=== PATIENT | female | born 1990 | race Caucasian/White ===

== ENCOUNTER 2025-04-11 18:33 | Inpatient (IN) | payer OTHER, SELFPAY ==
[2025-04-11] VITALS (8 sets, daily range): BP systolic 106–139; BP diastolic 63–89; BMI 24.8; BMI 23.2
--- NOTE | 2025-04-11 16:24 | ED.GENMED ---
History of Present Illness
<Mateusz Anaya PA-C - Last Filed: 04/11/25 18:47>
General
Chief Complaint: Musculo-Skeletal Complaint
Source: patient
Time Seen by Provider: 04/11/25 16:05
History of Present Illness
History of Present Illness:
34-year-old female with no significant past medical history presenting to the emergency department from [facility] urgent care in [place] for evaluation after she reportedly was found to have at least 3 right-sided rib fractures and a small
pneumothorax. Patient was walking her 90 pound dog last night when she got pulled down falling onto the ground and since that time has had increasing pain with deep inspiration and some mild shortness of breath. She did take some Advil last night
with minimal relief. Presently states she feels that she just cannot take a deep inspiration and that the deep inspiration does cause pain. She denies any use of anticoagulants.
Past History
<Mateusz Anaya PA-C - Last Filed: 04/11/25 18:47>
Past History
ED Past Medical History: None
ED Past Surgical History: Other
Social History
Tobacco: Non-smoker
Alcohol: Occasional
Drug: None
Living: with family
Employment: Employed
Review of Systems
<Mateusz Anaya PA-C - Last Filed: 04/11/25 18:47>
Review of Systems
All Other Systems: ROS reviewed and negative except as documented in HPI and ROS
Phy Exam
<Mateusz Anaya PA-C - Last Filed: 04/11/25 18:47>
Physical Exam
Physical Exam:
GENERAL: Alert , in no apparent distress at rest but does appear uncomfortable with deep inspiration
EYE: conjunctiva clear
NECK: Supple
ENT: o/p clr, mmm.
CARDIAC: Regular rate and rhythm
LUNGS: Absent lung sounds right mid lung and apices, no flail chest, no outward signs of trauma
NEUROLOGICAL: Alert and oriented
SKIN: Warm and dry, skin intact.
MUSCULOSKELETAL: well perfused.
PSYCH: Normal and appropriate interaction.
Scores
<Mateusz Anaya PA-C - Last Filed: 04/11/25 18:47>
Heart Failure Risk
Heart Failure Risk Score: Not Applicable
Heart Score for Chest Pain Patients
STEMI patient?: Not applicable
Withdrawal Assessment of Alcohol
Withdrawal Assessment Completed?: Not applicable
Course
<Mateusz Anaya PA-C - Last Filed: 04/11/25 18:47>
Orders/Labs/Results
Orders:
Orders
04/11/25 Dinner
Regular
At Your Request: Full Participation
Does patient need a safe tray?: No
04/11/25 16:17
Morphine Sulfate 4 mg IV NOW STA
04/11/25 16:20
CT Chest W/o Iv Contrast Urgent
Comment:
Reason For Exam: right PTX
04/11/25 16:28
Basic Metabolic Panel Urgent
Complete Blood Count/With Diff Urgent
PTT Urgent
Prothrombin Time Urgent
04/11/25 18:11
Admit/Transfer Patient As Directed
Co-Sign Provider:
Level of Care: Inpatient admission
Assign to:: IMU- Intermediate Care
Physician / Group: Kade Recio
Diagnosis: Fracture of rib of right side Pneumothorax
Reason for Hospitalization: Fracture of rib of right side Pneumothorax
Expected length of stay greater than two midnights?: Yes
ELOS- Estimated Length of Stay in days: 2
I certify the patient meets the requirements for IP care: Yes
PRN Pain Medication Management As Directed
May give lesser potent ordered pain med per pt: Yes
preference::
Protocol:: Medication orders for pain may be administered in a
manner that supports deferring to patient preference
when the pt is:
- Requesting an ordered lesser potent pain medication.
Least to most potent pain medications are defined
as: acetaminophen < NSAID < tramadol < opioids
(morphine, oxycodone, hydromorphone).
- Requesting a lesser dose of the same medication IF
ORDERED.
- Requesting a less intrusive route of administration
if both routes are prescribed by the provider (PO <
IV).
04/11/25 18:12
Code Status As Directed
Resuscitation Status: Full Code
04/11/25 19:00
CR Chest - 2 Views Urgent
Comment:
Reason For Exam: known PTX, repeat XR
04/11/25 20:54
Acetaminophen [Tylenol] 650 mg PO Q4HPRN PRN
Morphine Sulfate 2 mg IV Q4HPRN PRN
04/11/25 20:54
Cardiothoracic Surgery Consult Routine
Consulting Provider: Hugo Dougherty
Was physician already notified: Yes
PULMONARY CONSULT Routine
Consulting Provider: Iveth Pugh
Was physician already notified: Yes
Activity As Directed
Activity Level: As Tolerated
Vital Signs As Directed
Frequency: Per unit guidelines
Weight As Directed
Frequency: Once
Comment: on admission
DX Deep Vein Thrombosis Video Routine
04/12/25 06:00
Levothyroxine [Synthroid] 50 mcg PO DAILY@0600
Liothyronine [Cytomel] 12.5 microgram PO DAILY@0600
04/12/25 08:00
Citalopram [Celexa] 20 mg PO DAILY
Fluconazole [Diflucan] 200 mg PO DAILY
04/12/25 18:00
Enoxaparin Sodium [Lovenox] 40 mg SC QPM
Abnormal Lab Results
04/11/25
16:28
Absolute Neuts (auto) 7.8 H 10^3/uL
(1.4-6.5)
Absolute Monos (auto) 0.9 H 10^3/uL
(0.1-0.6)
Lymphocytes % 14.1 L %
(20.5-51.1)
Glucose 111 H mg/dl
(70-99)
04/11/25 16:28
04/11/25 16:28
Vital Signs
Initial and Last Documented VS:
Initial Vital Signs
Temp Pulse Resp BP Pulse Ox
98.0 F 86 20 122/75 99
04/11/25 15:48 04/11/25 15:48 04/11/25 15:48 04/11/25 15:48 04/11/25 15:48
Last Documented Vital Signs
Temp Pulse Resp BP Pulse Ox
98.6 F 80 18 106/87 96
04/11/25 21:07 04/11/25 20:45 04/11/25 20:45 04/11/25 20:27 04/11/25 22:26
<Cody Payne, DO - Last Filed: 04/11/25 22:50>
Orders/Labs/Results
Orders:
Orders
04/11/25 Dinner
Regular
At Your Request: Full Participation
Does patient need a safe tray?: No
04/11/25 16:17
Morphine Sulfate 4 mg IV NOW STA
04/11/25 16:20
CT Chest W/o Iv Contrast Urgent
Comment:
Reason For Exam: right PTX
04/11/25 16:28
Basic Metabolic Panel Urgent
Complete Blood Count/With Diff Urgent
PTT Urgent
Prothrombin Time Urgent
04/11/25 18:11
Admit/Transfer Patient As Directed
Co-Sign Provider:
Level of Care: Inpatient admission
Assign to:: IMU- Intermediate Care
Physician / Group: Kade Recio
Diagnosis: Fracture of rib of right side Pneumothorax
Reason for Hospitalization: Fracture of rib of right side Pneumothorax
Expected length of stay greater than two midnights?: Yes
ELOS- Estimated Length of Stay in days: 2
I certify the patient meets the requirements for IP care: Yes
PRN Pain Medication Management As Directed
May give lesser potent ordered pain med per pt: Yes
preference::
Protocol:: Medication orders for pain may be administered in a
manner that supports deferring to patient preference
when the pt is:
- Requesting an ordered lesser potent pain medication.
Least to most potent pain medications are defined
as: acetaminophen < NSAID < tramadol < opioids
(morphine, oxycodone, hydromorphone).
- Requesting a lesser dose of the same medication IF
ORDERED.
- Requesting a less intrusive route of administration
if both routes are prescribed by the provider (PO <
IV).
04/11/25 18:12
Code Status As Directed
Resuscitation Status: Full Code
04/11/25 19:00
CR Chest - 2 Views Urgent
Comment:
Reason For Exam: known PTX, repeat XR
04/11/25 20:54
Acetaminophen [Tylenol] 650 mg PO Q4HPRN PRN
Morphine Sulfate 2 mg IV Q4HPRN PRN
04/11/25 20:54
Cardiothoracic Surgery Consult Routine
Consulting Provider: Hugo Dougherty
Was physician already notified: Yes
PULMONARY CONSULT Routine
Consulting Provider: Iveth Pugh
Was physician already notified: Yes
Activity As Directed
Activity Level: As Tolerated
Vital Signs As Directed
Frequency: Per unit guidelines
Weight As Directed
Frequency: Once
Comment: on admission
DX Deep Vein Thrombosis Video Routine
04/12/25 06:00
Levothyroxine [Synthroid] 50 mcg PO DAILY@0600
Liothyronine [Cytomel] 12.5 microgram PO DAILY@0600
04/12/25 08:00
Citalopram [Celexa] 20 mg PO DAILY
Fluconazole [Diflucan] 200 mg PO DAILY
04/12/25 18:00
Enoxaparin Sodium [Lovenox] 40 mg SC QPM
Abnormal Lab Results
04/11/25
16:28
Absolute Neuts (auto) 7.8 H 10^3/uL
(1.4-6.5)
Absolute Monos (auto) 0.9 H 10^3/uL
(0.1-0.6)
Lymphocytes % 14.1 L %
(20.5-51.1)
Glucose 111 H mg/dl
(70-99)
04/11/25 16:28
04/11/25 16:28
Vital Signs
Initial and Last Documented VS:
Initial Vital Signs
Temp Pulse Resp BP Pulse Ox
98.0 F 86 20 122/75 99
04/11/25 15:48 04/11/25 15:48 04/11/25 15:48 04/11/25 15:48 04/11/25 15:48
Last Documented Vital Signs
Temp Pulse Resp BP Pulse Ox
98.6 F 80 18 106/87 96
04/11/25 21:07 04/11/25 20:45 04/11/25 20:45 04/11/25 20:27 04/11/25 22:26
<Mateusz Anaya PA-C - Last Filed: 04/11/25 18:47>
MDM/Problems Addressed
Differential Diagnosis Includes:
Known multiple rib fractures
No pneumothorax
hemothorax
Visceral injury
MDM/Problems Addressed:
34-year-old female presenting to the ER from urgent care for evaluation of known rib fractures and pneumothorax. Patient has x-rays on her phone, she does appear to have at least small to moderate right-sided pneumothorax. Will obtain CT scan here
to further evaluate. Patient will require chest tube placement. Dr. Payne made aware and will evaluate the patient. Disposition pending
<Mateusz Anaya PA-C - Last Filed: 04/11/25 18:47>
*Radiology
Radiology exam reviewed: radiology read reviewed
*Pulse Oximetry
SaO2: 99
Oxygen Mode of Delivery: Room air
Patient hypoxic: no
*New Car Get Ready Mechanic Interpretation
Rate: normal
Rhythm: sinus
*Critical Care Note
Total Time (30-74mins, 75-104mins- exclusive of procedures): Not Applicable
Data Reviewed
Review of Other/Old Records Reveals: Radiology Studies
Source: patient and records
<Cody Payne DO - Last Filed: 04/11/25 22:50>
*New Car Get Ready Mechanic Interpretation
Interpretation: normal
*Critical Care Note
Total Time (30-74mins, 75-104mins- exclusive of procedures): 35 minutes
<Mateusz Anaya PA-C - Last Filed: 04/11/25 18:47>
Patient Management
Discussion with other providers: Hospitalist and Physician Scientist
Escalation/DeEscalation of care consider admission/obs:
Dr. Payne discussed case with cardiothoracic surgery who reviewed patient's scans and okay with holding on placing chest tube at this time and can instead monitor with serial chest x-rays, recommends obtaining another chest x-ray in 2 hours. If
patient becomes symptomatic would then need to place chest tube. Okay with patient staying at this facility and they will see the patient in consult. Will also notify pulmonary team, hospitalist team to accept. Patient continues to remain
clinically stable, oxygen saturation 98% on room air.
<Cody Payne DO - Last Filed: 04/11/25 22:50>
Patient Management
Discussion with other providers: Physician Scientist (Case discussed with pulmonology and CT surgery)
ED Attending Note
<Mateusz Anaya PA-C - Last Filed: 04/11/25 18:47>
-
Portions of this chart may have been created with voice recognition software.� Occasional wrong word or��sound alike� substitutions may have occurred due to the inherent limitations of voice recognition software.
<Cody Payne DO - Last Filed: 04/11/25 22:50>
ED Attending Note
Patient seen and examined by attending physician: Yes
I performed the substantive portion of visit, reviewed & personally made and approve the management plan that is documented in note by myself or OPAL.: Yes
ED Attending Note:
34-year-old female presents after she fell yesterday. Found to have a pneumothorax as an outpatient x-ray from urgent care. CT shows 10 to 15%. No clinical concern for tension. Patient is very well-appearing. Not tachypneic, not tachycardic.
Exam: Awake and alert, pulse ox normal, does have good breath sounds. Assessment and plan: Case discussed with CT surgery reviewed CT scan and recommends against chest tube at this time. The patient is really hesitant to proceed with chest tube
and only if it is necessary which is understandable. At this time with shared decision making with the patient and consultation with both pulmonology and CT surgery, we will hold off on chest tube insertion for now and get a repeat x-ray in the
morning. If pneumothorax is persistent or worsening, she may need to have tube thoracostomy and the patient is aware. At the time of transfer to her bed upstairs she was very stable and in fact was hungry. No further symptoms. Continue to
monitor close
Discharge Plan
Departure
Patient Disposition: Admit
Date of Disposition: 04/11/25
Time of Disposition: 17:39
Presentation/result/management discussed w/ accepting MD/DO: Hospitalist
Discharge Problem:
Pneumothorax, Fracture of rib of right side
Interventions
Interventions:
*Risk Screen - Suicide Last Done: 04/11/25 16:32
*General Assessment Last Done: 04/11/25 15:48
*Neglect/Abuse Screening Last Done: 04/11/25 16:32
*ED COVID-19 Vaccine History Last Done: 04/11/25 16:32
*Nursing Disposition Last Done: 04/11/25 20:57
ED-Musculoskeletal Assessment Last Done: 04/11/25 16:30
Discharge Date and Time
Discharge Date/Time: 04/11/25 20:57
[2025-04-11] MEDS: MORPHINE SULFATE 4 MG IV (16:30)
[2025-04-11 16:38] LABS: Hematocrit 43.5 % (37.0-47.0); Hemoglobin 14.6 g/dL (12.0-16.0); Mean Corp Hgb Conc. 33.6 g/dL (33.0-37.0); Mean Corpuscular Volume 89.7 fL (81.0-99.0); Nucleated Red Blood Cells % 0 %; Platelet Count 225 10^3/uL (130-400); Red Cell Dist. Width 12.7 % (11.5-14.5)
[2025-04-11 16:47] LABS: INR 1.06; PT 14.1 Sec (11.4-14.6)
[2025-04-11 16:48] LABS: APTT 26.2 Sec (23.4-35.0)
[2025-04-11 16:52] LABS: Blood Urea Nitrogen 12 mg/dl (7-17); Calcium 9.2 mg/dl (8.4-10.2); Carbon Dioxide 25 mmol/L (22-30); Chloride 103 mmol/L (98-107); Estimated Creatinine Clearance 79 ml/min; Glucose 111 mg/dl (70-99); Potassium 3.8 mmol/L (3.5-5.1); Sodium 137 mmol/L (135-145); eGFR > 60.00
--- NOTE | 2025-04-11 17:43 | HPS.HSE ---
Family Physician
-
Family Physician: Paxton Bose
Chief Complaint
-
pain with inspiration and dyspnea
History of Present Illness
Patient is a 39-year-old female with past medical history significant for anxiety/depression and ADD who presented to [facility] ED for evaluation as recommended by [facility] Urgent care in [place]. Patient went to [facility] for evaluation of increasing pain with
deep inspiration and some mild dyspnea. Patient reports that yesterday evening she was walking her 90lb dog when she was pulled and down and fell onto the ground landing on small tree stump. Since fall she reports increasing pain with deep
inspiration and difficulty sleeping yesterday evening.
Medical History
Past Medical History
Past Medical History: Reports Other
Additional Past Medical History:
anxiety/depression
hypothyroid
ADD
acne
Past Surgical History: Reports Other
Additional Past Surgical History:
wisdom teeth extraction
breast augmentation
Social History
Tobacco: Non-smoker
Alcohol: None
Drug: Marijuana (occasional )
Living: With Family
Employment: Employed
Family History
Family History: Not pertinent
Allergies / Home Medications
Allergies reflects when Allergies were last updated in [employer].
Home Medications with original date entered in [employer]
Allergy/Medication List:
Allergies
Allergy/AdvReac Type Severity Reaction Status Date / Time
No Known Allergies Allergy Unverified 04/11/25 15:48
Home Medications
calcium carbonate (Tums) 200 mg PO BIDPRN PRN gerd 04/11/25
citalopram 20 mg tablet 20 mg PO DAILY 04/11/25
dextroamphetamine-amphetamine ER 15 mg 24hr capsule,extend release (Adderall XR) 15 mg PO DAILY 04/11/25
fluconazole 200 mg tablet 200 mg PO DAILY 04/11/25
subha root extract 50 mg tablet 50 mg PO DAILY 04/11/25
ibuprofen 200 mg tablet (Advil) 400 mg PO Q6HPRN PRN mild pain 04/11/25
levothyroxine 50 mcg tablet 50 mcg PO DAILY 04/11/25
liothyronine 25 mcg tablet 12.5 mcg PO DAILY 04/11/25
omega 4-big-yzd-fish oil 1,000 mg (120 mg-180 mg) capsule (Fish Oil) 1 cap PO DAILY 04/11/25
spironolactone 50 mg tablet 50 mg PO DAILY 04/11/25
Review of Systems
-
History Source: Patient
Constitutional: Reports No Symptoms
EENT: Reports No Symptoms
Respiratory: Reports Other (pain with deep inspiration )
Cardiac: Reports No Symptoms
Abdomen/GI: Reports No Symptoms
: Reports No Symptoms
Musculoskeletal: Reports No Symptoms
Skin: Reports No Symptoms
Neurological: Reports No Symptoms
Endocrine: Reports No Symptoms
Hematologic/Lymphatic: Reports No Symptoms
Psych: Reports No Symptoms
Physical Exam
Vital Signs
Vital Signs
Temp Pulse Resp BP Pulse Ox
98.0 F 84 18 137/79 98
04/11/25 15:48 04/11/25 17:30 04/11/25 17:30 04/11/25 17:00 04/11/25 17:30
Physical Exam
General: Well Developed, Well Nourished and No Apparent Distress
HEENT: NormoCephalic, Moist mucous membranes, Atraumatic, [place] Conjunctivae, Nose Appears Normal and Ears Appear Normal
Respiratory: Clear, Non Labored Respirations and Other (appears to be in discomfort with deep breathing )
Cardiac: S1/S2 and Regular Rhythm; No Murmur, Rub or Gallop
Breast: Deferred by me
GI: Soft, Non Tender, Non Distended and Normal Bowel Sounds; No Organomegaly
Rectal: Deferred by Provider
Genito-urinary: Deferred by me
Musculoskeletal: No Clubbing, No Cyanosis and No Edema
Skin: Warm and IV/Catheter Site
Neuro: Awake, Alert, AO x 3 and Nonfocal/grossly intact
Psych: Calm and Intact Judgment/Insight
Laboratory Results
-
04/11/25 16:28
04/11/25 16:28
Laboratory Results
PT 14.1 Sec (11.4-14.6) 04/11/25 16:28
INR 1.06 04/11/25 16:28
APTT 26.2 Sec (23.4-35.0) 04/11/25 16:28
Data Reviewed
-
CT Scan: Report Reviewed by me (Chest: Fractures involving the right ninth through 11th ribs. Small right pneumothorax, estimated volume 10-15%. There is mild shift of the heart toward the left, suggesting that there could be a small component of
tension associated with the pneumothorax. As warranted, continued radiographic foll)
Lab Data: Labs Reviewed by me
Impression/Plan
-
IMPRESSION/PLAN:
#Fracture of rib of right side 9th - 11th ribs
#Pneumothorax
Chest CT: Fractures involving the right ninth through 11th ribs.
Small right pneumothorax, estimated volume 10-15%.
There is mild shift of the heart toward the left, suggesting that there could be a small component of tension associated with the pneumothorax. As warranted, continued radiographic follow-up
may be helpful.
- Admit to IMU
- Consult CT surgery
- Consult Pulmonary
#hypothyroid
- continue levothyroxine and liothyronine
#anxiety/depression
- continue citalopram
#ADD
- continue Adderall
#acne
- continue spironolactone
#bacterial vaginitis
patient reports recent diagnosis
- continue fluconazole
Code status: full code
DVT prophylaxis: Loveonox sq
--- NOTE | 2025-04-11 18:13 | W.PN.UPDATE ---
Update Note
Progress Note Update
This note serves as an addendum to the H&P by materials buyer OPAL Jane Eli
HPI
34F No signifcant PMHX sent to ER from [facility] urgent care in [place]
- for evaluation after she reportedly was found to have at least 3 right-sided rib fractures and a small pneumothorax. - s/p mechanical fall while walking the 90 lb dog Patient was walking her 90 pound dog last night
- since increasing pain with deep inspiration and some mild shortness of breath.
- She did take some Advil last night with minimal relief.
She denies any use of anticoagulants.
Relevant VS
Vital Signs
Temp Pulse Resp BP Pulse Ox
98.0 F 86 19 137/79 97
04/11/25 15:48 04/11/25 17:45 04/11/25 17:45 04/11/25 17:00 04/11/25 17:45
PE
Gen: NAD
Neck: supple
Lungs: absent lung sounds right mid lung and apices, no flail chest, no outward signs of trauma
Cor: RRR S1 S2
Abnormal Lab Results
04/11/25
16:28
Absolute Neuts (auto) 7.8 H
Absolute Monos (auto) 0.9 H
Lymphocytes % 14.1 L
Glucose [address] W/o Iv Contrast
- Fractures involving the right ninth through 11th ribs.
- Small right pneumothorax, estimated volume 10-15%.
- There is mild shift of the heart toward the left, suggesting that there could be a small component of tension associated with the pneumothorax.
- As warranted, continued radiographic follow-up may be helpful.
NO PRIOT hospitalist admission:
ASSESSMENT & PLAN
Pending Rx reconciliation
Traumatic Rt 10-15% PTX due to Rt 9-11 Rib Rx
- associated mild shift of the heart toward the left - could be a small component of tension ?
- ER dw CTS Dr Ascencio, -stable to keep her at
- Urgent consulted to CTS, Pul
- PRN pain Meds
Hypothyroid
-on Liothyronine
On Spironolactone for Acne Vulgaris
DVT Px: LMWH
Full code
IMU
--- NOTE | 2025-04-11 21:47 | PTCARENOTE ---
Received patient from ED, aao x3 able to make needs known. Verbalizes pain is minimal at rest, increases to 5-6/10 with movement and activity. Patient ambulatory from stretcher to standing scale, then bed, gait steady. Lung sounds decreased to right
lobes, clear to left lobes. Pox 96% on ra. Patient states she would like to eat prior to receiving pain medication, will plan to administer as needed post eating. Physical assessment as documented. ROCK SINGER to bedside to assess patient as well upon
arrival to unit. Call gandhi within reach, will continue to monitor patient closely.
[2025-04-11] MEDS: MORPHINE SULFATE 2 MG IV (21:58)
[2025-04-12] VITALS (11 sets, daily range): BP systolic 99–132; BP diastolic 58–85
--- NOTE | 2025-04-12 02:20 | W.PN.UPDATE ---
Update Note
Progress Note Update
~1 am Follow up CXR, reviewed and appears stable on preliminary read. Patient with no hypoxia, vital signs stable, pain controlled.
[2025-04-12] MEDS: CYTOMEL 12.5 MICROGRAM PO (05:57)
[2025-04-12] MEDS: SYNTHROID 50 MCG PO (05:57)
[2025-04-12] MEDS: MORPHINE SULFATE 2 MG IV (06:10)
[2025-04-12] MEDS: DIFLUCAN 200 MG PO (09:00)
[2025-04-12] MEDS: CELEXA 20 MG PO (09:00)
--- NOTE | 2025-04-12 09:40 | CON.PUL ---
Consultation
Consultation Request
Date/Time Consultation Requested: 04/11/2025 - 2053
Date/Time Consultation Performed: 04/12/2025843
Requesting Provider: KIRTI Howell
Performing Provider: Dr. Christianson
Reason for Consultation: Acute PTX
Medical History
-
Chief Complaint: Chest pain + SOB s/p fall
History of Present Illness:
34-year-old female with a past medical history of of ADD, anxiety/depression and hypothyroidism who presents with a fall with subsequent chest pain + SOB. Patient was walking her 90 pound dog (traci pérez) when the dog saw a deer and took off,
causing the patient to slip onto her side which hit a tree trunk. She went to an urgent care ([facility] urgent care in [place]) and diagnosed with 3 rib fractures with a partial pneumothorax. Patient came here to for further evaluation. CT chest
showed a comminuted fracture involving the posterior right 11th rib, with a nondisplaced fracture involving the posterolateral right ninth rib, with a slightly displaced right shoulder involving the posteromedial right 10th rib. There was also a
small right sided pneumothorax. Patient was given morphine in the ER and admitted to the hospitalist service. Pulmonary service now consulted for additional management/recommendations.
When I saw the patient, she was resting in bed in no acute distress. Her fianc�, Alon, is present at bedside and all questions were answered. Continues to have right-sided rib discomfort. BP 111/70, heart rate 86 and saturating 99%. I asked the
nurse to place her on to 4 L/min nasal cannula which she is currently on. Patient is a non-smoker and has no personal history of a pneumothorax.
PMHx: Anxiety/depression, ADD, hypothyroidism, acne
PSHx: [place] teeth extraction, breast augmentation
Past Medical History
Past Medical History: Other (Above as per HPI)
Past Surgical History: Other (Above as per HPI)
Social History
Tobacco: Non-smoker
Alcohol: None
Drug: Marijuana (Occasionally)
Personal: Other (Engaged)
Employment: Employed
Family History
Family History: Reviewed & Not Pertinent
Allergies / Home Medications
Allergies
Allergy/AdvReac Type Severity Reaction Status Date / Time
No Known Allergies Allergy Unverified 04/11/25 15:48
Home Medications
�Medication �Instructions �Recorded �Confirmed �Last Taken �Type
calcium carbonate (Tums) 200 mg PO BIDPRN PRN gerd 04/11/25 04/11/25 04/10/25 History
citalopram 20 mg tablet 20 mg PO DAILY Mental 04/11/25 04/11/25 04/11/25 History
Health/Anxiety
dextroamphetamine-amphetamine ER 15 mg PO DAILY ADD 04/11/25 Unknown History
15 mg 24hr capsule,extend release
(Adderall XR)
fluconazole 200 mg tablet 200 mg PO DAILY ANTIFUNGAL 04/11/25 04/11/25 04/11/25 History
subha root extract 50 mg tablet 50 mg PO DAILY Supplement 04/11/25 04/11/25 Unknown History
ibuprofen 200 mg tablet (Advil) 400 mg PO Q6HPRN PRN mild pain 04/11/25 04/11/25 04/10/25 History
levothyroxine 50 mcg tablet 50 mcg PO DAILY Thyroid 04/11/25 04/11/25 04/11/25 History
liothyronine 25 mcg tablet 12.5 mcg PO DAILY Thyroid 04/11/25 04/11/25 04/11/25 History
omega 7-zli-gyq-fish oil 1,000 mg 1 cap PO DAILY Supplement 04/11/25 04/11/25 Unknown History
(120 mg-180 mg) capsule (Fish Oil)
spironolactone 50 mg tablet 50 mg PO DAILY Fluid 04/11/25 04/11/25 04/11/25 History
Retention/Swelling
Review of Systems
-
History Source: Patient
All other systems: Negative unless noted
Vitals / Labs / Diagnostic Testing
Vital Signs
Temp Pulse Resp BP Pulse Ox
98.2 F 68 17 111/70 99
04/12/25 07:05 04/12/25 13:00 04/12/25 13:00 04/12/25 12:00 04/12/25 13:00
Lab Data
04/12/25 12:30
04/12/25 12:30
Laboratory Results
04/11/25
16:28
PT 14.1
INR 1.06
APTT 26.2
Diagnostic Testing:
Physical Exam
-
HEENT: Normocephalic and Anicteric
Cardiovascular: S1/S2 and Peripheral Edema (negative)
Respiratory: Wheeze (negative), Rales (Right base) and Rhonchi (negative)
GI: Soft, Non Distended, Non Tender and Normal Bowel Sounds
Neurology: AO x 3 and Tremors (negative)
Skin: Warm and Dry
General: Respiratory Distress (negative), Comfortable, Pain (Right sided ribs when she takes a deep breath, coughs or when her ribs are palpated), Fever (negative) and Chills (negative)
Assessment
-
Assessment: 34-year-old female with a past medical history of of ADD, anxiety/depression and hypothyroidism who presents with a fall with subsequent chest pain + SOB. Patient was walking her 90 pound dog (traci pérez) when the dog saw a deer and
took off, causing the patient to slip onto her side which hit a tree trunk. She went to an urgent care ([facility] urgent care in [place]) and diagnosed with 3 rib fractures with a partial pneumothorax. Patient came here to for further evaluation.
CT chest showed a comminuted fracture involving the posterior right 11th rib, with a nondisplaced fracture involving the posterolateral right ninth rib, with a slightly displaced right shoulder involving the posteromedial right 10th rib. There was
also a small right sided pneumothorax. Patient was given morphine in the ER and admitted to the hospitalist service in the IMU. Pulmonary service now consulted for additional management/recommendations.
Chronic conditions CUSTOMS OFFICER: Anxiety/depression, ADD, hypothyroidism, acne
Impression:
#Right-sided traumatic pneumothorax initially with mild tension
#Fall while walking dog s/p acute right-sided rib fractures (ribs 9 through 11 with a slightly displaced right shoulder involving the posteromedial right 10th rib)
#Right-sided rib pain due to fall
#Anxiety/depression
#Hypothyroidism
#ADD
Plan:
- Patient fell while walking her 90 lb dog after he chased after a deer; the pt slipped and fell, hitting the right side of her ribs onto a tree trunk and was found to have a right-sided pneumothorax which remains small
- Start supplemental O2 to maintain hyperoxia to help resorb the pneumothorax
- Pain control, give patient a small pillow to hold up against her ribs while coughing/sneezing/sitting up as this will help prevent splinting
- Avoid incentive spirometer as this could potentially worsen her pneumothorax
- Repeat CXR later this afternoon to assess if PTX is enlarging --> if pt develops worsening chest pain or SOB, then she will need stat CXR and will likely need a chest tube
- If PTX remains stable by tomorrow, then she can likely come off oxygen and be discharged with outpatient repeat CXR
- Her rib fractures are nondisplaced, and right 11th rib fracture is comminuted; right shoulder is slightly displaced involving the posteromedial right 10th rib
- Pain control is bailey here
- As stated above, give patient a small pillow to hold up against her ribs to avoid splinting while she coughs, sneezes or sits up
- Maintain SpO2 >95%, using supplemental o2 as above to keep her hyperoxic
- prn nebulized bronchodilators - not currently bronchospastic
- Replete electrolytes with K>4, Mg>2
- Trend H/H and transfuse if needed to keep Hb>7g/dL; keep plt>20k, unless there is concern for bleeding then keep plt>50k
- Maintain euglycemia with goal BG >100 and <180
- DVT ppx: LMWH
Pulmonary service will continue to follow along. Outpatient office follow-up will be arranged.
Data:
CT chest without contrast 04/11/2025:
Fractures involving the right ninth through 11th ribs.
Small right pneumothorax, estimated volume 10-15%.
There is mild shift of the heart toward the left, suggesting that there could be a small component of tension associated with the pneumothorax. As warranted, continued radiographic follow-up may be helpful.
CXR 04/12/2025: Essentially stable small right apical pneumothorax.
Total time spent today was 62 minutes for this encounter. Time includes reviewing laboratory test/imaging results, reviewing pertinent medical records, obtaining and reviewing medical history, performing an appropriate exam, ordering medications,
tests and procedures. Time also includes documentation of this encounter, coordinating patient care and communicating with other healthcare professionals. Total time does not include separately billed tests performed on this date of service.
[2025-04-12] MEDS: TORADOL 10 MG IV (10:53)
--- NOTE | 2025-04-12 11:15 | PTCARENOTE ---
Patient placed on 4L NC per order from Pulmonary, to help reabsorb the pneumothorax. Pt reports pain at 8/10 but asking for lesser pain medication because the Morphine just makes her sleep. Toradol given per DEC. Pt reports breathing is fine. Right
lung sounds diminished. Pt asking to shower, aware but would like to assess her first. Pt ate breakfast. Assessment, care and VS as charted.
[2025-04-12 12:44] LABS: Hematocrit 43.2 % (37.0-47.0); Hemoglobin 14.6 g/dL (12.0-16.0); Mean Corp Hgb Conc. 33.8 g/dL (33.0-37.0); Mean Corpuscular Volume 90.4 fL (81.0-99.0); Platelet Count 224 10^3/uL (130-400); Red Cell Dist. Width 12.7 % (11.5-14.5)
--- NOTE | 2025-04-12 12:53 | W.PN.HOSP.TC ---
Today's Communication/Plan
-
Repeat chest x-ray in the morning
Oxygen
Pain control
Lidocaine patch to chest wall for pain
B HCG
DC Diflucan and add Flagyl
Assessment / Plan
Assessment / Plan
34-year-old with dyspnea. Patient was walking with her 90 pound dog when she was pulled and she fell.
Patient stated that she fell onto a stump of the tree. Did not hit her head or any other parts of the body. This happened on Friday and she went to urgent care on Friday. Denies any pain anywhere else, no chest pain shortness of breath, any other
body aches or pains no abdominal pain no headache no loss of consciousness no nausea or vomiting.
On examination awake alert oriented pleasant
Cardiovascular system S1-S2 appreciated
Tenderness on the rib on the right side clear to auscultation
Abdomen soft and nontender
All joint exams without any pain and no movement restriction
No injuries noted
# Traumatic rib fractures 19 level on the right side with pneumothorax
Chest x-ray reviewed by me
Pulmonary consulted pain control
Oxygen
Toradol for pain.
Minimize IV narcotics
# Recent bacterial vaginal infection. Patient completed Diflucan 150 mg 1 dose. Patient is supposed to be on Flagyl 500 mg twice daily for total of 5 days. Not Diflucan daily. Discontinue Diflucan and start Flagyl
# Hypothyroidism-continue levothyroxine 50 mcg daily and also liothyronine 12.5 mcg daily
# Depression-continue Celexa
# ADHD-continue Adderall
# DVT prophylaxis-Lovenox
# Full code
Discussed with nursing at bedside
Add beta-HCG
Part of this note was created using voice recognition system. Occasional wrong word or��sound alike� substitutions may have inadvertently occurred due to the inherent limitations of voice recognition software. If noted kindly bring it to my
attention for correction.
Anticipated Discharge: 24 - 48 hours
Subjective/Interval History
-
Date of Service: April 12, 2025
Objective Data
-
Labs:
Laboratory Results
04/12/25
12:30
WBC 8.2
Hgb 14.6
Hct 43.2
Plt Count 224
Sodium Pending
Potassium Pending
Chloride Pending
Carbon Dioxide Pending
BUN Pending
Creatinine Pending
Glucose Pending
Calcium Pending
Vital Signs:
Vital Signs
Temp Pulse Resp BP Pulse Ox
98.2 F 66 15 100/66 99
04/12/25 07:05 04/12/25 11:00 04/12/25 11:00 04/12/25 08:00 04/12/25 11:15
I&O
04/11/25 04/12/25 04/13/25
06:59 06:59 06:59
Intake Total 480 / 480
Balance 480 / 480
[2025-04-12 13:49] LABS: Blood Urea Nitrogen 19 mg/dl (7-17); Calcium 9.5 mg/dl (8.4-10.2); Carbon Dioxide 28 mmol/L (22-30); Chloride 107 mmol/L (98-107); Estimated Creatinine Clearance 82 ml/min; Glucose 97 mg/dl (70-99); Potassium 4.6 mmol/L (3.5-5.1); Sodium 139 mmol/L (135-145); eGFR > 60.00
[2025-04-12] MEDS: FLAGYL 500 MG PO ×2 (14:33→19:47)
[2025-04-12 14:40] LABS: HCG, Serum Qualitative Screen Negative
--- NOTE | 2025-04-12 16:30 | CM ---
Patient with Dx Traumatic rib fractures with pneumothorax. O2 4L. Per nurse; ambulatory in room.
Met with patient who resides with her in a 2 story house.
The patient was independent in ADLs and ambulation.
She was active, works, drives.
The patient has no DME or prior VN.
PCP - Paxton Bose
Pharmacy - [facility]
Per nurse; O2 in place to help close pneumothorax- no O2 likely needed at d/c.
Plan home.
[2025-04-12] MEDS: LIDOCAINE 4% PATCH 1 PATCH TOPICAL (19:46)
--- NOTE | 2025-04-12 21:55 | PTCARENOTE ---
Patient aao x3 since start of shift. Denies pain thus far this shift, verbalizes that prn Toradol effective with pain relief earlier today. Patient requesting Lidocaine patch on at night, off in am. RN reviewed with MATERIAL DISPOSITION INSPECTOR, order changed to on in PM,
off in AM. Patch applied per order. Patient requesting to ambulate in hallway. Patient placed on tele mauricio, portable pulse ox provided. RN ambulated with patient as stand by and instructed patient to notify staff with any sob or difficulty breathing.
Patient tolerated well and completed 3 laps around unit, taking breaks in between ad kendrick. Remains NSR on the monitor, lung sounds clear to left lobes, diminished throughout right side. Remains on 4L o2 n/c per Pulmonary, fu Cxray planned in am.
Patient currently resting in bed, fiance at bedside. Call gandhi within reach, will continue to monitor patient closely.
[2025-04-12] MEDS: ROXICODONE 5 MG PO (23:02)
[2025-04-13] VITALS: BP 90/51
[2025-04-13] MEDS: MORPHINE SULFATE 2 MG IV (00:16)
[2025-04-13 02:00] VITALS: BP 99/60
[2025-04-13 04:00] VITALS: BP 101/55
[2025-04-13] MEDS: CYTOMEL 12.5 MICROGRAM PO (05:44)
[2025-04-13] MEDS: SYNTHROID 50 MCG PO (05:44)
[2025-04-13 05:57] LABS: Hematocrit 40.4 % (37.0-47.0); Hemoglobin 13.5 g/dL (12.0-16.0); Mean Corp Hgb Conc. 33.4 g/dL (33.0-37.0); Mean Corpuscular Volume 92.0 fL (81.0-99.0); Platelet Count 202 10^3/uL (130-400); Red Cell Dist. Width 12.5 % (11.5-14.5)
[2025-04-13 06:00] VITALS: BP 96/55
[2025-04-13 06:22] LABS: Blood Urea Nitrogen 16 mg/dl (7-17); Calcium 8.8 mg/dl (8.4-10.2); Carbon Dioxide 32 mmol/L (22-30); Chloride 106 mmol/L (98-107); Estimated Creatinine Clearance 74 ml/min; Glucose 93 mg/dl (70-99); Potassium 4.4 mmol/L (3.5-5.1); Sodium 139 mmol/L (135-145); eGFR > 60.00
[2025-04-13 08:00] VITALS: BP 95/54
[2025-04-13] MEDS: FLAGYL 500 MG PO (09:09)
[2025-04-13] MEDS: CELEXA 20 MG PO (09:09)
[2025-04-13] MEDS: REMOVE LIDOCAINE PATCH 1 PATCH REMOVE (09:10)
[2025-04-13] MEDS: TORADOL 10 MG IV (09:11)
[2025-04-13] MEDS: FLUSH (NSS) 1 FLUSH IV (09:12)
--- NOTE | 2025-04-13 09:22 | W.PN.PUL3 ---
Today's Communication / Plan
-
Pain control
Pneumothorax stable and small
No need for chest tube or needle aspiration
Patient is stable for discharge home. Outpatient pulmonary office follow-up will be arranged. Recommend repeat CXR on 04/15/2025. She can call my office for results and next steps.
No additional recommendations at this time. Pulmonary service will now sign off. Please reconsult if there are any additional questions/concerns, or if patient's respiratory status deteriorates.
Assessment
-
Assessment: 34-year-old female with a past medical history of of ADD, anxiety/depression and hypothyroidism who presents with a fall with subsequent chest pain + SOB. Patient was walking her 90 pound dog (traci pérez) when the dog saw a deer and
took off, causing the patient to slip onto her side which hit a tree trunk. She went to an urgent care ([facility] urgent care in [place]) and diagnosed with 3 rib fractures with a partial pneumothorax. Patient came here to for further evaluation.
CT chest showed a comminuted fracture involving the posterior right 11th rib, with a nondisplaced fracture involving the posterolateral right ninth rib, with a slightly displaced right shoulder involving the posteromedial right 10th rib. There was
also a small right sided pneumothorax. Patient was given morphine in the ER and admitted to the hospitalist service in the IMU. Pulmonary service now consulted for additional management/recommendations.
Chronic conditions MATH COACH: Anxiety/depression, ADD, hypothyroidism, acne
Impression:
#Right-sided traumatic pneumothorax initially with mild tension - tension now resolved
#Fall while walking dog s/p acute right-sided rib fractures (ribs 9 through 11 with a slightly displaced right shoulder involving the posteromedial right 10th rib)
#Right-sided rib pain due to fall
#Anxiety/depression
#Hypothyroidism
#ADD
Plan:
- Patient fell while walking her 90 lb dog after dog chased after a deer; the pt slipped and fell, hitting the right side of her ribs onto a tree trunk and was found to have a right-sided pneumothorax
- Supplemental oxygen was placed onto the patient yesterday at 4 L/min and pneumothorax today remains stable with slight improvement
- Still too small for chest tube
- Given that she remains asymptomatic with no shortness of breath, chest pain, or shoulder pain, and remains hemodynamically stable and saturating 97% on room air, no need for needle aspiration of air either
- Pain control, give patient a small pillow to hold up against her ribs while coughing/sneezing/sitting up as this will help prevent splinting
- Avoid incentive spirometer as this could potentially worsen her pneumothorax
- Given that pneumothorax has remained stable and small, patient is cleared for discharge home with repeat CXR in 48 hours with outpatient follow-up with our office
- She was told to avoid strenuous activity until the pneumothorax has completely resolved, and if she develops sudden chest pain, shoulder pain, back pain, or shortness of breath she is to return to her nearest ER immediately or call 911 to be
reevaluated for worsening pneumothorax
- Her rib fractures are nondisplaced, and right 11th rib fracture is comminuted; right shoulder is slightly displaced involving the posteromedial right 10th rib
- Pain control is bailey here
- As stated above, give patient a small pillow to hold up against her ribs to avoid splinting while she coughs, sneezes or sits up
- Maintain SpO2 >90-94%; ok to keep her off O2 now
- prn nebulized bronchodilators - not currently bronchospastic
- Replete electrolytes with K>4, Mg>2
- Trend H/H and transfuse if needed to keep Hb>7g/dL; keep plt>20k, unless there is concern for bleeding then keep plt>50k
- Maintain euglycemia with goal BG >100 and <180
- DVT ppx: LMWH
Patient is stable for discharge home. Outpatient pulmonary office follow-up will be arranged. Recommend repeat CXR on 04/15/2025. She can call my office for results and next steps.
No additional recommendations at this time. Pulmonary service will now sign off. Thank you for allowing us to be involved in the care of this patient. Please reconsult if there are any additional questions/concerns, or if patient's respiratory
status deteriorates.
Data:
CT chest without contrast 04/11/2025:
Fractures involving the right ninth through 11th ribs.
Small right pneumothorax, estimated volume 10-15%.
There is mild shift of the heart toward the left, suggesting that there could be a small component of tension associated with the pneumothorax. As warranted, continued radiographic follow-up may be helpful.
CXR 04/12/2025: Essentially stable small right apical pneumothorax.
Total time spent today was 37 minutes for this encounter. Time includes reviewing laboratory test/imaging results, reviewing pertinent medical records, obtaining and reviewing medical history, performing an appropriate exam, ordering medications,
tests and procedures. Time also includes documentation of this encounter, coordinating patient care and communicating with other healthcare professionals. Total time does not include separately billed tests performed on this date of service.
Subjective Data
-
Date of Service:
Date of Service: April 13, 2025
Chief Complaint: Pulmonary Follow Up
Subjective:
Patient was seen and evaluated this morning. She feels well, denying chest pain, SOB, or shoulder pain. Was on oxygen overnight but was taken off this morning. Currently saturating 97% on room air, heart rate 84 and BP 96/55. She is eager to go
home.
Review of Systems
General: Other (Negative unless mentioned above)
Objective Data
Data Reviewed
Vital Signs / I&O / Oxygen:
Vital Signs
Temp Pulse Resp BP Pulse Ox
97.7 F 49 15 95/54 99
04/13/25 03:00 04/13/25 09:00 04/13/25 09:00 04/13/25 08:00 04/13/25 09:00
Intake and Output
04/12/25 04/13/25 04/14/25
06:59 06:59 06:59
Intake Total 1200 / 1200
Balance 1200 / 1200
SaO2 99
Nasal Cannula flow liters per 4
minute
Physical Exam
General: Respiratory Distress (negative), Comfortable, Chills (negative) and Sweats (negative)
HEENT: Normocephalic and Anicteric
Cardiovascular: S1-S2 and Peripheral Edema (negative)
Respiratory: Wheeze (negative), Crackles (Mild bibasilar upon deep inspiration), Rhonchi (negative), Non-Labored Respirations and Stridor (negative)
GI: Soft, Non Distended, Non Tender and Normal Bowel Sounds
Neurology: AO x 3 and Tremors (negative)
Skin: Warm, Dry, Cyanosis (negative) and Jaundice (negative)
Labs/Micro/Reports
Lab Data
04/13/25 05:50
04/13/25 05:50
--- NOTE | 2025-04-13 10:07 | W.PN.HOSP.TC ---
Today's Communication/Plan
-
Pneumothorax unchanged
Pain control
Encourage out of bed
Assessment / Plan
Assessment / Plan
34-year-old with dyspnea. Patient was walking with her 90 pound dog when she was pulled and she fell.
Patient stated that she fell onto a stump of the tree. Did not hit her head or any other parts of the body. This happened on Friday and she went to urgent care on Friday. Denies any pain anywhere else, no chest pain shortness of breath, any other
body aches or pains no abdominal pain no headache no loss of consciousness no nausea or vomiting.
On examination awake alert oriented pleasant
Cardiovascular system S1-S2 appreciated
Tenderness on the rib on the right side clear to auscultation
Abdomen soft and nontender
Chest x-ray reviewed by me-small pneumothorax on the right side
# Traumatic rib fractures 9//11 level on the right side with pneumothorax
Communicated fracture of the posterior right 11th rib slightly displaced
Fracture of the posterior medial right 10th rib
Nondisplaced fracture of the posterior ninth rib
Chest x-ray reviewed by me
Pulmonary consulted
Pain control
Oxygen
Toradol and Oxycodone for pain.
Add Tramodol
Lidocaine patch to be continued
Minimize narcotics
# Recent bacterial vaginal infection. Patient completed Diflucan 150 mg 1 dose. Patient is supposed to be on Flagyl 500 mg twice daily for total of 5 days. Not Diflucan daily. Discontinued Diflucan and started Flagyl
# Hypothyroidism-continue levothyroxine 50 mcg daily and also liothyronine 12.5 mcg daily
# Depression-continue Celexa
# ADHD-continue Adderall
# DVT prophylaxis-Lovenox
# Full code
Discussed with nursing at bedside
Part of this note was created using voice recognition system. Occasional wrong word or��sound alike� substitutions may have inadvertently occurred due to the inherent limitations of voice recognition software. If noted kindly bring it to my
attention for correction.
Anticipated Discharge: Within 24 hours
Subjective/Interval History
-
Date of Service: April 13, 2025
Objective Data
-
Labs:
Laboratory Results
04/13/25
05:50
WBC 7.7
Hgb 13.5
Hct 40.4
Plt Count 202
Sodium 139
Potassium 4.4
Chloride 106
Carbon Dioxide 32 H
BUN 16
Creatinine 1.0
Glucose 93
Calcium 8.8
Vital Signs:
Vital Signs
Temp Pulse Resp BP Pulse Ox
97.7 F 49 15 95/54 99
04/13/25 03:00 04/13/25 09:00 04/13/25 09:00 04/13/25 08:00 04/13/25 09:00
I&O
04/12/25 04/13/25 04/14/25
06:59 06:59 06:59
Intake Total 1200 / 1200
Balance 1200 / 1200
[2025-04-13 13:10] VITALS: BP 117/59
--- NOTE | 2025-04-13 13:48 | W.PN.UPDATE ---
Update Note
Progress Note Update
called PCP office retired.
Pt was last seen in 2022.
Spoke to Dr. Stevens's office [phone]. Spoke to business office associate Britni
I have faxed CAT scan and today's chest x-ray results to her per request
Discussed about patient needs to be seen. They have 3 cancellations tomorrow they will call the patient to set up the appointment.
Discussed about patient needing an x-ray on 04/15/2025 and pulmonary follow-up. Britni will arrange for patient to get x-rays.
Patient has an appointment with PCP tomorrow at 10:00
We will also make x-rays on a CD for patient to take.
Discussed with pulmonary
Total discharge coordination time more than 40 minutes
--- NOTE | 2025-04-13 13:55 | W.DS.TRANS ---
Addendum entered and electronically signed by Evin Louie MD 04/13/25 17:22:
Dictation - [id number]
Original Note:
DC Summary - Import Manager
-
Discharge Instructions:
Discharge Diagnosis/Procedures Traumatic rib fractures 06/15/11 level on the
right side with pneumothorax
Hypothyroidism
Depression
Diet As tolerated
Activity No strenuous activity
Additional Activity No strenuous activity until cleared by
pulmonology
Driving Restrictions No driving for 1 week
Bathing Restrictions OK to Shower
Others Tests Chest x-ray 04/13/2025
Instructions:
Stand-Alone Forms:
Changes to Home Medications: Yes
Discharge Medications:
DC Medications w/original date entered in [facility]
calcium carbonate (Tums) 200 mg PO BIDPRN PRN gerd 04/11/25
citalopram 20 mg tablet 20 mg PO DAILY Mental Health/Anxiety 04/11/25
dextroamphetamine-amphetamine ER 15 mg 24hr capsule,extend release (Adderall XR) 15 mg PO DAILY ADD 04/11/25
ibuprofen 200 mg tablet (Advil) 400 mg PO Q6HPRN PRN mild pain 04/11/25
levothyroxine 50 mcg tablet 50 mcg PO DAILY Thyroid 04/11/25
liothyronine 25 mcg tablet 12.5 mcg PO DAILY Thyroid 04/11/25
omega 3-mho-jqe-fish oil 1,000 mg (120 mg-180 mg) capsule (Fish Oil) 1 cap PO DAILY Supplement 04/11/25
spironolactone 50 mg tablet 50 mg PO DAILY Fluid Retention/Swelling 04/11/25
acetaminophen 500 mg tablet (Tylenol Extra Strength) 1,000 mg (2 x 500 mg) PO Q6H PRN mild pain #30 tabs 04/13/25
lidocaine 4 % topical patch 1 patch topical DAILY@2000 Pain #0 ea 04/13/25
metronidazole 500 mg tablet 500 mg PO BID vaginal inf #4 tabs 04/13/25
oxycodone 5 mg tablet 5 mg PO BIDPRN PRN severe pain #10 tabs 04/13/25
sennosides 8.6 mg capsule (senna) 8.6 mg PO HS PRN when you take Oxy #14 caps 04/13/25
Home Medication Changes
Senokot, oxycodone, lidocaine patch, Tylenol are new
Pending Results: No
--- NOTE | 2025-04-13 14:55 | PTCARENOTE ---
Patient feeling better. Pain has been 6-7/10, mainly with movement and deep breaths. Pain at right rib location. VS stable. Spo2 98% room air. Waiting for d/c paper and pt to go home today.
--- NOTE | 2025-04-13 15:38 | CM ---
Patient with Dx Traumatic rib fractures with pneumothorax. Room air.
Met with patient who was preparing for discharge.
The patient says she feels ready for discharge home today.
Her will provide transport home today.
No CM d/c needs identified.
Plan home today.
== END 2025-04-13 15:30 | disposition home or self-care (01) | DRG 200 ==
LOC: IMU 18:33
PROVIDERS: Physician Assistant Medical; ADMITTING PHYSICIAN Internal Medicine; ATTENDING PHYSICIAN Hospitalist; EMERGENCY PHYSICIAN Emergency Medicine; FAMILY PHYSICIAN Family Medicine; OTHER PHYSICIAN Internal Medicine Critical Care Medicine
DX: J93.0 Spontaneous tension pneumothorax (principal); S22.41XA Multiple fractures of ribs, right side, initial encounter for closed fracture; W18.30XA Fall on same level, unspecified, initial encounter; F41.9 Anxiety disorder, unspecified; F32.A Depression, unspecified; E03.9 Hypothyroidism, unspecified
CPT/HCPCS: 71045; 71046; 71250; 80048; 84703; 85025; 85027; 85610; 85730; 96374; 99291

== ENCOUNTER → 2025-04-18 15:36 | Outpatient (REF) | payer SELFPAY | LOC: RAD 15:36 | PROVIDERS: ATTENDING PHYSICIAN Nurse Practitioner | DX: S22.41XS Multiple fractures of ribs, right side, sequela (principal); S27.0XXS Traumatic pneumothorax, sequela; Z09 Encounter for follow-up examination after completed treatment for conditions other than malignant neoplasm | CPT/HCPCS: 71046 ==